=== PATIENT | female | born 1995 | race Caucasian/White ===

== ENCOUNTER 2018-01-18 10:27 | Emergency (ER) | payer OTHER ==
[~2018-01-18] VITALS: Ht 160 cm; Wt 68.9 kg
[~2018-01-18 10:27] MED LIST: MUCINEX D1 TAB.SR1 PO; ZITHROMAX500 MG PO
== END 2018-01-18 16:30 | disposition home or self-care (01) ==
LOC: ER 10:27
DX: K29.60 Other gastritis without bleeding (principal)

== ENCOUNTER 2020-11-10 00:15 | Emergency (ER) | payer OTHER ==
[~2020-11-10] VITALS: Ht 160 cm; Wt 88.5 kg
== END 2020-11-10 03:12 ==
LOC: ER 00:15
DX: R00.2 Palpitations (principal)